=== PATIENT | female | born 2005 | race Caucasian/White ===

== ENCOUNTER 2025-08-14 14:54 | Emergency (ER) | payer BC, SELFPAY ==
[2025-08-14 14:57] VITALS: BP 138/88
[2025-08-14 15:02] LABS: Glucose - Point of Care 117 mg/dl (70-99)
--- NOTE | 2025-08-14 15:59 | ED.GENMED ---
History of Present Illness
General
Chief Complaint: Fatigue
Source: patient
Time Seen by Provider: 08/14/25 15:30
History of Present Illness
History of Present Illness:
20-year-old female with no significant past medical history presents to the emergency department for a multitude of nonspecific symptoms including generalized fatigue, tiredness, intermittent lightheadedness, feeling as if she needs to drink more
often as well as urinate more often, paresthesias to her fingertips and intermittent palpitations. Symptoms have been ongoing for approximately 1 months, maybe slightly worse over the last week. Patient states she was most concerned for possible
elevated blood sugars which is what ultimately brought her in today. She states that after learning her blood sugar was fine in triage she felt a little bit better and ultimately would now like to be discharged home and follow-up with her primary
care provider. Family history and social history are noncontributory.
Past History
Past History
ED Past Medical History: None
ED Past Surgical History: Orthopedic
Social History
Tobacco: Non-smoker
Alcohol: None
Drug: None
Personal: Single
Living: with family
Employment: Student
Review of Systems
Review of Systems
All Other Systems: ROS reviewed and negative except as documented in HPI and ROS
Phy Exam
Physical Exam
Physical Exam:
GENERAL: Alert , in no apparent distress, somewhat anxious
HEAD: Normocephalic atraumatic
EYE: conjunctiva clear
NECK: Supple
ENT: o/p clr, mmm.
CARDIAC: Regular rate and rhythm
LUNGS: Clear breath sounds bilaterally, no acute respiratory distress, no wheezes/rales/rhonchi
NEUROLOGICAL: Alert and oriented
SKIN: Warm and dry, skin intact.
MUSCULOSKELETAL: well perfused.
PSYCH: Normal and appropriate interaction.
Scores
Heart Failure Risk
Heart Failure Risk Score: Not Applicable
Heart Score for Chest Pain Patients
STEMI patient?: Not applicable
Withdrawal Assessment of Alcohol
Withdrawal Assessment Completed?: Not applicable
Course
Orders/Labs/Results
Orders:
Orders
08/14/25 15:42
Electrocardiogram (*1) Urgent
Reason for Study: Palpitations
EKG- Treatment ONCE
Abnormal Lab Results
08/14/25
14:59
POC Glucose 117 H mg/dl
(70-99)
Vital Signs
Initial and Last Documented VS:
Initial Vital Signs
Temp Pulse Resp BP Pulse Ox
97.7 F 125 16 138/88 99
08/14/25 14:57 08/14/25 14:57 08/14/25 14:57 08/14/25 14:57 08/14/25 14:57
Last Documented Vital Signs
Temp Pulse Resp BP Pulse Ox
97.7 F 125 16 138/88 99
08/14/25 14:57 08/14/25 14:57 08/14/25 14:57 08/14/25 14:57 08/14/25 15:59
MDM/Problems Addressed
Differential Diagnosis Includes:
Hyper/Hypothyroid
Panic/Anxiety
Electrolyte Imbalance
Less concern for infectious etiology
DM
Cardiac Arrhythmia
(LMP Late June)
MDM/Problems Addressed:
20-year-old female presenting to the ER for evaluation of a multitude of symptoms occurring over the last month, biggest concern was for possible elevated blood sugars. Patient reports that after finding out her blood sugar was 1 significantly
elevated in triage she reports that she does not have any symptoms and ultimately wishes to go home. I did offer her to check lab work including thyroid studies however she states she would just like to follow-up with her family doctor for this.
Her triage heart rate was noted to be elevated at 125 so we will check an EKG here. Patient aware of return precautions but otherwise stable for discharge home.
*Pulse Oximetry
SaO2: 99
Oxygen Mode of Delivery: Room air
Patient hypoxic: no
*EKG
Interpretation: normal
Heart Rate: 83
Rate: normal
Rhythm: sinus
Meigs: normal axis
Ischemia: no ischemia
*Critical Care Note
Total Time (30-74mins, 75-104mins- exclusive of procedures): Not Applicable
ED Attending Note
-
Portions of this chart may have been created with voice recognition software.� Occasional wrong word or��sound alike� substitutions may have occurred due to the inherent limitations of voice recognition software.
Discharge Plan
Departure
Patient Disposition: Home (Routine Discharge)
Date of Disposition: 08/14/25
Time of Disposition: 15:59
Patient with high blood pressure during this ER visit?: No
Discharge Problem:
Fatigue
Instructions: Fatigue (DC)
Prescriptions:
No Action
No Current Medications
0
Interventions
Interventions:
*Risk Screen - Suicide Last Done: 08/14/25 16:05
*General Assessment Last Done: 08/14/25 16:05
*Neglect/Abuse Screening Last Done: 08/14/25 16:05
*ED- Fall Risk Assessment Last Done: 08/14/25 16:05
*ED COVID-19 Vaccine History Last Done: 08/14/25 16:05
*ED Influenza Vaccine History Last Done: 08/14/25 16:05
Discharge Date and Time
Print Language: TAJIK
[2025-08-14 16:05] VITALS: BMI 20.4
[2025-08-14 16:07] VITALS: BP 128/65
== END 2025-08-14 16:33 | disposition home or self-care (01) ==
LOC: EMR 14:54
PROVIDERS: EMERGENCY PHYSICIAN Student in an Organized Health Care Education/Training Program; FAMILY PHYSICIAN Physician Assistant Medical
DX: R00.2 Palpitations (principal); R53.83 Other fatigue; R42 Dizziness and giddiness; R20.2 Paresthesia of skin
CPT/HCPCS: 99284; 82962; 93005